=== PATIENT | male | born 1990 | race Caucasian/White ===

== ENCOUNTER 2022-08-05 09:22 | Emergency (ER) | payer BC ==
--- NOTE | 2022-08-05 12:30 | RAD REPORT ---
EXAM DESCRIPTION: US - Scrotum Testicles - 08/05/2022 10:37 am CLINICAL HISTORY: scrotal swelling Scrotal pain and swelling COMPARISON: No comparisons FINDINGS: The right testicle 5.1 x 3.3 x 2.6 cm. No intratesticular masses or evidence of testicular torsion. The left testicle 5.2 x 3.7 x 2.9 cm.. No intratesticular masses or evidence of testicular torsion. Both epididymides are normal in size and appearance. Mild left-sided scrotal hydrocele. Small left-sided varicocele. IMPRESSION: No evidence of intratesticular mass or testicular torsion. No acute findings seen. Mild left-sided hydrocele.
--- NOTE | 2022-08-05 12:50 | EDPHYS ---
Physician Documentation [facility] Name: Crow Moreno Age: 32 yrs Sex: Male : 1990 Arrival Date: 08/05/2022 Time: 09:25 Bed 16 Private MD: GLORIA Physician Edwin Haines HPI: 08/05 09:49 This 32 yrs old Male presents to ER via Ambulatory with complaints of Testicular jmm Swelling. 09:49 The patient presents with scrotal pain, of the left side. Onset: The symptoms/episode jmm began/occurred gradually, 2 day(s) ago. Associated signs and symptoms: Pertinent positives: abdominal pain. This is a 32-year-old male with no known chronic condition presents emerged part with complaints of scrotal swelling, particular on the left side. Pain does radiate to the left side of the abdomen. Patient complains of chills but denies fever. Patient denies dysuria or discharge. Historical: - Allergies: 09:43 No Known Allergies; iw - Home Meds: 09:43 None [Active]; iw - PMHx: 09:43 None; iw - PSHx: 09:43 None; iw - Immunization history:: Client reports receiving the 2nd dose of the Covid vaccine. - Social history:: Smoking status: Patient denies any tobacco usage or history of. Patient/guardian denies using street drugs. ROS: 09:49 Constitutional: Positive for body aches, chills, fatigue. jmm 09:49 : Positive for testicular pain 09:49 All other systems are negative. Exam: 09:49 Constitutional: This is a well developed, well nourished patient who is awake, alert, jmm and in no acute distress. Head/Face: atraumatic. Eyes: EOMI, no conjunctival erythema appreciated ENT: Moist Mucus Membranes Neck: Trachea midline, Supple Chest/axilla: Normal chest wall appearance and motion. Cardiovascular: Regular rate and rhythm. No edema appreciated Respiratory: Normal respirations, no respiratory distress appreciated Abdomen/GI: Non distended 09:49 Skin: General appearance color normal MS/ Extremity: Moves all extremities, no obvious deformities appreciated, no edema noted to the lower extremities Neuro: Awake and alert Psych: Behavior is normal, Mood is normal, Patient is cooperative and pleasant 09:49 Eyes: EOMI, no conjunctival erythema appreciated 09:49 Abdomen/GI: Inspection: abdomen appears normal, Bowel sounds: normal, Palpation: soft, nontender. 09:49 : Male external genitalia: swelling: scrotal, of the epididymis area, that is mild. Vital Signs: 09:41 BP 128 / 85; Pulse 117; Resp 16; Temp 97.5; Pulse Ox 95% on R/A; Weight 108.86 kg; iw Height 5 ft. 10 in. (177.80 cm); Pain 7/10; 11:00 BP 127 / 56; Pulse 70; Resp 16; Pulse Ox 99% ; db 12:11 BP 136 / 63; Pulse 68; Resp 16; Pulse Ox 98% ; db 13:00 BP 142 / 65; Pulse 67; Resp 18; Pulse Ox 98% ; db 09:41 Body Mass Index 34.44 (108.86 kg, 177.80 cm) iw MDM: 09:49 Patient medically screened. [facility] 12:49 Data reviewed: vital signs, nurses notes. Counseling: I had a detailed discussion with alexander the patient and/or guardian regarding: the historical points, exam findings, and any diagnostic results supporting the discharge/admit diagnosis, the need for outpatient follow up, to return to the emergency department if symptoms worsen or persist or if there are any questions or concerns that arise at home. 08/05 09:54 Order name: US Scrotum Testicles; Complete Time: 12:30 [facility] Administered Medications: 13:10 Drug: Rocephin (cefTRIAXone) 1 grams Route: IM; Site: right deltoid; db 13:25 Follow up: Response: No adverse reaction db 13:10 Drug: AZITHromycin 1 grams Route: PO; db 13:25 Follow up: Response: No adverse reaction db Disposition Summary: 08/05/22 12:49 Discharge Ordered Location: Home [facility] Condition: Stable [facility] Diagnosis - Epididymitis [facility] Followup: [facility] - With: Greg Wu MD - When: 2 - 3 days - Reason: Recheck today's complaints, Continuance of care, Re-evaluation by your physician Discharge Instructions: - Discharge Summary Sheet [facility] - Epididymitis [facility] Forms: - Medication Reconciliation Form [facility] - Thank You Letter [facility] - Antibiotic Education [facility] - Prescription Opioid Use [facility] - Work release form eb Prescriptions: - levofloxacin 750 mg Oral tablet - take 1 tablet by ORAL route once daily for 10 days; 10 tablet; Refills: 0, mikem Product Selection Permitted Addendum: 08/09/2022 04:06 Co-signature as Attending Physician, Edwin Haines MD I agree with the assessment and c gallego plan of care. Signatures: Dispatcher [employer] Edwin Sepulveda MD MD cha Mickail, Joel, PA PA jmm Williams, Irene, RN RN iw Benton, Danielle, RN RN db
--- NOTE | 2022-08-05 12:50 | ER ---
Nurse's Notes [facility] Name: Crow Moreno Age: 32 yrs Sex: Male : 1990 Arrival Date: 08/05/2022 Time: 09:25 Bed 16 Private MD: Diagnosis: Epididymitis Presentation: 08/05 09:41 Chief complaint: Patient states: feels like swelling to left testicle, pain into iw abdomen X 1.5 days. Coronavirus screen: At this time, the client does not indicate any symptoms associated with coronavirus-19. Ebola Screen: Patient negative for fever greater than or equal to 101.5 degrees Fahrenheit, and additional compatible Ebola Virus Disease symptoms Patient denies exposure to infectious person. Patient denies travel to an Ebola-affected area in the 21 days before illness onset. No symptoms or risks identified at this time. Initial Sepsis Screen: Does the patient meet any 2 criteria? No. Patient's initial sepsis screen is negative. Does the patient have a suspected source of infection? No. Patient's initial sepsis screen is negative. Risk Assessment: Do you want to hurt yourself or someone else? Patient reports no desire to harm self or others. Onset of symptoms was August 03, 2020. 09:41 Method Of Arrival: Ambulatory iw 09:41 Acuity: RODGER 3 iw Historical: - Allergies: 09:43 No Known Allergies; iw - Home Meds: 09:43 None [Active]; iw - PMHx: 09:43 None; iw - PSHx: 09:43 None; iw - Immunization history:: Client reports receiving the 2nd dose of the Covid vaccine. - Social history:: Smoking status: Patient denies any tobacco usage or history of. Patient/guardian denies using street drugs. Screenin:30 Abuse screen: Denies threats or abuse. Denies injuries from another. Nutritional db screening: No deficits noted. Tuberculosis screening: No symptoms or risk factors identified. Fall Risk None identified. No fall in past 12 months (0 pts). No secondary diagnosis (0 pts). No IV (0 pts). Ambulatory Aid- None/Bed Rest/Nurse Assist (0 pts). Gait- Normal/Bed Rest/Wheelchair (0 pts) Mental Status- Oriented to own ability (0 pts). Total Farris Fall Scale indicates No Risk (0-24 pts). Assessment: 10:30 Reassessment: Patient appears in no apparent distress at this time. Patient is alert, db oriented x 3, equal unlabored respirations, skin warm/dry/pink. left testicular pain. In NAD. General: Appears in no apparent distress. comfortable, Behavior is calm, cooperative, appropriate for age, quiet. Pain: Complains of pain in left testicle. Neuro: No deficits noted. Level of Consciousness is awake, alert, obeys commands, Oriented to person, place, time, situation, Appropriate for age Speech is normal, Facial symmetry appears normal, Pupils are PERRLA. Cardiovascular: No deficits noted. Respiratory: No deficits noted. GI: No deficits noted. : No deficits noted. No signs and/or symptoms were reported regarding the genitourinary system. EENT: No deficits noted. No signs and/or symptoms were reported regarding the EENT system. EENT: Reports pain left testicular pain. Derm: No deficits noted. No signs and/or symptoms reported regarding the dermatologic system. 10:40 Reassessment: patient states testicular pain and swelling started about 1 day ago. db Denies any recent injury. Denies painful urination. 11:30 Reassessment: Patient appears in no apparent distress at this time. No changes from db previously documented assessment. Patient and/or family updated on plan of care and expected duration. Pain level reassessed. Patient is alert, oriented x 3, equal unlabored respirations, skin warm/dry/pink. 12:30 Reassessment: Patient appears in no apparent distress at this time. No changes from db previously documented assessment. Patient and/or family updated on plan of care and expected duration. Pain level reassessed. Patient is alert, oriented x 3, equal unlabored respirations, skin warm/dry/pink. Vital Signs: 09:41 BP 128 / 85; Pulse 117; Resp 16; Temp 97.5; Pulse Ox 95% on R/A; Weight 108.86 kg; iw Height 5 ft. 10 in. (177.80 cm); Pain 7/10; 11:00 BP 127 / 56; Pulse 70; Resp 16; Pulse Ox 99% ; db 12:11 BP 136 / 63; Pulse 68; Resp 16; Pulse Ox 98% ; db 13:00 BP 142 / 65; Pulse 67; Resp 18; Pulse Ox 98% ; db 09:41 Body Mass Index 34.44 (108.86 kg, 177.80 cm) ED Course: 09:25 Patient arrived in ED. mr 09:26 Edson Hurd PA is PHCP. [facility] 09:26 Edwin Haines MD is Attending Physician. [facility] 09:43 Triage completed. iw 10:02 Sade Singh, RN is Primary Nurse. db 10:30 Patient has correct armband on for positive identification. Placed in gown. Bed in low db position. Side rails up X 1. 10:39 US Scrotum Testicles In Process Unspecified. EDMS 11:30 Patient placed in an exam room, on a stretcher. db 12:49 Greg Wu MD is Referral Physician. m 13:25 Patient did not have IV access during this emergency room visit. db 13:51 No provider procedures requiring assistance completed. db Administered Medications: 13:10 Drug: Rocephin (cefTRIAXone) 1 grams Route: IM; Site: right deltoid; db 13:25 Follow up: Response: No adverse reaction db 13:10 Drug: AZITHromycin 1 grams Route: PO; db 13:25 Follow up: Response: No adverse reaction db Medication: 10:30 VIS not applicable for this client. db Outcome: 12:49 Discharge ordered by . [facility] 13:25 Discharged to home ambulatory. db 13:25 Condition: stable 13:25 Discharge instructions given to patient, Instructed on discharge instructions, follow up and referral plans. Prescriptions given X 1. 13:27 Patient left the ED. Signatures: Dispatcher [employer] EDCO Edson Hurd PA PA dave DumasHannah Irene, RN RN iw Sade Singh, RN RN db
[2022-08-05] MEDS ORDERED: AZITHROMYCIN 1 GM PACKET ONE (13:04)
[2022-08-05] MEDS ORDERED: LIDOCAINE 1% MPF 2 ML AMPULE ONE (13:05)
[2022-08-05] MEDS ORDERED: CEFTRIAXONE 1000 MG/VIAL ONE (13:05)
[2022-08-05 13:33] VITALS: BP 128/85; TEMP 97.5; O2SAT 95
== END 2022-08-05 13:27 | disposition home or self-care (01) ==
LOC: ER 09:22
DX: N45.1 Epididymitis (principal)
CPT/HCPCS: 76870; 96372; 99283